=== PATIENT | female | born 1950 | race Caucasian/White ===

== ENCOUNTER → 2024-07-16 10:57 | Outpatient (REF) | payer OTHER, SELFPAY | LOC: RCS 10:57 | PROVIDERS: ATTENDING PHYSICIAN Internal Medicine Cardiovascular Disease; FAMILY PHYSICIAN Physician Assistant Medical | DX: R42 Dizziness and giddiness (principal) | CPT/HCPCS: 93306 ==

== ENCOUNTER → 2024-08-11 11:21 | Outpatient (REF) | payer OTHER, SELFPAY | LOC: RAD 11:21 | PROVIDERS: ATTENDING PHYSICIAN Internal Medicine Cardiovascular Disease; FAMILY PHYSICIAN Physician Assistant Medical | DX: R42 Dizziness and giddiness (principal) | CPT/HCPCS: 93880 ==

== ENCOUNTER → 2024-09-03 09:55 | Outpatient (REF) | payer OTHER, SELFPAY | LOC: HWWDC 09:55 | PROVIDERS: ATTENDING PHYSICIAN Physician Assistant Medical | DX: Z12.31 Encounter for screening mammogram for malignant neoplasm of breast (principal); J44.9 Chronic obstructive pulmonary disease, unspecified | CPT/HCPCS: 77063; 77067; 77080 ==

== ENCOUNTER 2024-12-23 11:21 | Emergency (ER) | payer OTHER, SELFPAY ==
[2024-12-23 11:39] VITALS: BP 137/65
--- NOTE | 2024-12-23 11:49 | ED.GENMED ---
ED Provider Triage
-
Patient seen by provider in Triage?: Seen in Triage
74-year-old female history of hypertension and hyperlipidemia and episodes of dizziness previously to diagnosed as vertigo although she had a neuro, cardiac, ENT workup and they really could not find a significant cause who presents for the feeling
of lightheadedness when she looks all the way up. Patient says if her neck is flexed she feels better. The symptoms started this morning, she had a flight home from [place] after being there for 3 weeks. She felt well on the flight but was unable
to sleep. She then slept for 11 hours and woke up feeling this way. Patient is currently hyperventilating and is very difficult to take a history. She is not having any chest pain. She says she is not short of breath however she is extremely
tachypneic. She is also shaky all over. She called her daughter this morning who is a nurse practitioner and she was instructed to come to the hospital after her blood pressure was found to be high with a home cuff.
A medical screening examination has been initiated by a qualified medical provider. Based on the assessment performed at this time, it has been determined that an emergent medical condition may exist and the patient has been informed that further
medical evaluation and possible additional diagnostic testing may be needed.
HPI: This is a medical evaluation conducted in person to initiate diagnostic evaluation and provide initial therapeutics. Please see further documentation by the treating clinician.
GENERAL: Alert panic, significant hyperventilation
Neck: Patient is holding her neck in 30 degrees flexion, she can extend it without pain, I do not appreciate any nystagmus
ENT: No visible abnormalities
LUNGS: No acute respiratory distress, tachypneic
NEUROLOGICAL: Alert and oriented
SKIN: Skin intact. No visible changes.
MUSCULOSKELETAL: Moving extremities normally
PSYCH: Anxious
74-year-old female with hypertension and high cholesterol who seems to be having a panic episode. She is extremely tachypneic, hyperventilating because she feels very lightheaded. She just did fly from [place] but is not having any pleuritic chest
pain or hypoxia. Will start with screening labs, EKG, may need imaging based on a full exam
History of Present Illness
General
Chief Complaint: Dizziness
History of Present Illness
History of Present Illness:
see ed provider triage
Phy Exam
Physical Exam
Physical Exam:
see ed provider traige
Course
Orders/Labs/Results
Orders:
Orders
12/23/24 11:28
EKG [Electrocardiogram (*1)] Urgent
Reason for Study: Vertigo / Dizzy
12/23/24 11:29
EKG- Treatment ONCE
12/23/24 11:39
12/23/24 11:39
Vital Signs
Initial and Last Documented VS:
Initial Vital Signs
Temp Pulse Resp Pulse Ox
37.1 C 76 16 98
12/23/24 11:34 12/23/24 11:34 12/23/24 11:34 12/23/24 11:34
Last Documented Vital Signs
Temp Pulse Resp BP Pulse Ox
37.1 C 76 16 137/65 98
12/23/24 11:34 12/23/24 11:34 12/23/24 11:34 12/23/24 11:39 12/23/24 11:34
MDM/Problems Addressed
MDM/Problems Addressed:
pt wass een in triage by me
but decided she was going to leave prior to receiving results. pt is elopement
*Critical Care Note
Total Time (30-74mins, 75-104mins- exclusive of procedures): Not Applicable
ED Attending Note
-
Portions of this chart may have been created with voice recognition software.� Occasional wrong word or��sound alike� substitutions may have occurred due to the inherent limitations of voice recognition software.
Discharge Plan
Departure
Patient Disposition: Elopement
Date of Disposition: 12/23/24
Time of Disposition: 13:50
Interventions
Interventions:
*Risk Screen - Suicide Last Done: 12/23/24 11:34
*Neglect/Abuse Screening Last Done: 12/23/24 11:34
*Nursing Disposition Last Done: 12/23/24 13:54
Discharge Date and Time
Discharge Date/Time: 12/23/24 13:54
Print Language: BULGARIAN
--- NOTE | 2024-12-23 11:56 | ED TECH ---
pt stuck 2 times for blood work. unable to obtain blood work due to pt retracting arm with each needle stick. RN and PA in triage made aware.
== END 2024-12-23 13:54 | disposition left against medical advice (07) ==
LOC: EMR 11:21
PROVIDERS: EMERGENCY PHYSICIAN Emergency Medicine
DX: R42 Dizziness and giddiness (principal); R06.4 Hyperventilation; I10 Essential (primary) hypertension; E78.00 Pure hypercholesterolemia, unspecified; Z53.29 Procedure and treatment not carried out because of patient's decision for other reasons
CPT/HCPCS: 99283; 93005

== ENCOUNTER → 2025-10-11 13:13 | Outpatient (REF) | payer OTHER, SELFPAY | LOC: RAD 13:13 | PROVIDERS: ATTENDING PHYSICIAN Internal Medicine Critical Care Medicine; FAMILY PHYSICIAN Physician Assistant Medical | DX: R05.3 Chronic cough (principal); R19.8 Other specified symptoms and signs involving the digestive system and abdomen; J47.9 Bronchiectasis, uncomplicated | CPT/HCPCS: 71250 ==